=== PATIENT | male | born 1975 | race Caucasian/White ===

== ENCOUNTER 2018-09-11 09:38 | Emergency (ER) | payer MEDICAID ==
[~2018-09-11] VITALS: Ht 185.4 cm; Wt 81.8 kg
[2018-09-11 09:53] VITALS: BP 119/82
== END 2018-09-11 11:13 | disposition home or self-care (01) ==
LOC: ER 09:40
DX: J06.9 Acute upper respiratory infection, unspecified (principal)
CPT/HCPCS: 99281